=== PATIENT | male | born 1990 | race Caucasian/White ===

== ENCOUNTER 2022-02-25 12:00 | Outpatient (CLI) | payer BC, SELFPAY | END 2022-02-25 12:01 | disposition home or self-care (01) | LOC: SLEEP 02-26 12:37 | PROVIDERS: Visit Provider Family Medicine | DX: R06.83 Snoring (principal) | CPT/HCPCS: G0399 ==

== ENCOUNTER 2022-11-02 16:22 | Outpatient (CLI) | payer MEDICAID, SELFPAY ==
[2022-11-02 16:45] LABS: Viscosity Semen Normal
[2022-11-02 17:21] LABS: Epithelial Count Semen 0-4 /hpf; Red Blood Count Semen 0-4 /hpf
[2022-11-02 17:23] LABS: Sperm Immotility 50 % (50-60)
[2022-11-02 17:24] LABS: Sperm Non-Progressive Motility 20 % (5-10); Sperm Progressive Motility 30 % (31-34)
[2022-11-02 18:04] LABS: Sperm Vitality-% Live Sperm 48 %
[2022-11-02 18:10] LABS: PH Semen 7.5 (7.0-8.0)
== END 2022-11-02 16:23 | disposition home or self-care (01) ==
LOC: LAB 16:23
PROVIDERS: Visit Provider Obstetrics & Gynecology
DX: N46.9 Male infertility, unspecified (principal)
CPT/HCPCS: 80503; 89320

== ENCOUNTER 2022-12-17 19:43 | Inpatient (IN) | payer MEDICAID, SELFPAY ==
--- NOTE | 2022-12-17 19:50 | W.ED.PSYCHS ---
HPI - Psych General: Chief Complaint: Psychiatric Symptoms Stated Complaint: Anxiety/depression Time Seen by Provider: 12/17/22 19:49 History of Present Illness: Mr Black is a 32-year-old gentleman with history of anxiety presenting to the emergency department for mental health exam. He reports increased stress for some period of time and has began to feel like he loses control of his emotions. He describes acting in ways that he would not normally do. He was recently fired from his job. He reports crying in the car for about 30 minutes yesterday for reasons that he cannot is unsure of. He denies specific suicidal or homicidal thoughts. He does endorse possible hallucinations in the past though this is somewhat vague and may be more secondary to sleep deprivation. Intensity symptoms is severe. He does endorse THC use. No other specific changes in health, exacerbating, or alleviating factors identified. Onset (ago): day(s) Duration: getting worse Relieving factors: none Exacerbating factors: none Context: significant life stressor Associated psychiatric symptoms: depression Review of Systems General: Reports: 10 or more systems reviewed and unremarkable except in HPI and below PFSH ED PFSH: Medical History No significant past medical history Surgical History No significant past surgical history Physical Exam Const: COMMON NORMALS: alert GENERAL APPEARANCE: cooperative and well developed HENMT: COMMON NORMALS: normocephalic and atraumatic HEAD & SCALP: normocephalic and atraumatic Eye: COMMON NORMALS: conjunctivae normal CONJUNCTIVA: Yes conjunctivae normal SCLERA: sclerae normal Neck/C-Spine: COMMON NORMALS: supple GENERAL: Yes trachea midline Resp: COMMON NORMALS: normal respiratory effort EFFORT & INSPECTION: Yes able to speak in complete sentences Cardio: COMMON NORMALS: regular rate and regular rhythm RATE: regular rate RHYTHM: regular rhythm GI: COMMON NORMALS: Soft to palpation PALPATION: Yes Soft to palpation and No Tenderness to palpation present (GI) PERCUSSION: normal to percussion Extremity: GENERAL: Yes normal exam except as noted and No edema Neuro: COMMON NORMALS: moves all extremities SENSORIUM/ORIENTATION: Yes alert and No Orientation impaired Psych: ATTITUDE: Yes paranoid and Yes bizarre MOOD & AFFECT: Yes elevated mood THOUGHT PROCESS: disorganized Course Vital Signs: Vital signs: Vital Signs Temperature 97.6 F 12/21/22 16:09 Pulse Rate 70 12/21/22 16:09 Respiratory Rate 20 H 12/21/22 16:09 Blood Pressure 158/93 12/21/22 16:09 Pulse Oximetry 95 12/21/22 16:09 Oxygen Delivery Me thod 12/21/22 14:00 MDM - Psych Medical Decision Making 32-year-old male presenting with episodes of abnormal psychiatric symptoms that have worsened. Patient is cooperative but quite odd on neurologic exam. Details of history are somewhat challenging to obtain. No significant hematologic or metabolic abnormalities to explain symptoms. Toxic ingestions negative. THC positive on her drug screen. Based on ED evaluation at this point there is no obvious condition that would preclude the patient from inpatient management psychiatric concerns/symptoms. Most likely etiology of patient symptoms is unspecified psychiatric The results of ED evaluation were discussed with the patient including plan for admission due to requirement for level of care not available if discharged to prevent significant worsening/deterioration. Patient agreeable with plan. Discussed with psychiatry service who was agreeable to admit patient. Medical Records I reviewed the patient's medical records. Lab Data I reviewed the patient's lab results. 12/17/22 20:22 12/17/22 20: Laboratory Results WBC 8.8 10^3/uL (4.0-10.0) 12/17/22 20: RBC 4.72 10^6/uL (4.1-5.3) 12/17/22 20: Hgb 13.6 g/dL (11.7-16.6) 12/17/22: Hct 41.0 % (42.0-52.0) L 12/17/22: MCV 86.9 fl (80-94) 12/17/22 20: MCH 28.8 pg (28.0-34.0) 12/17/22: MCHC 33.2 g/dL (30.0-36.0) 12/17/22 20: RDW 12.4 % (12.1-15.1) 12/17/22 20: Plt Count 326 10^3/cmm (130-400) 12/17/22 20: MPV 10.3 fL (7.4-10.4) 12/17/22 20: Neut % (Auto) 60.9 % 12/17/22 20: Lymph % (Auto) 23.3 % 12/17/22 20: [place] % (Auto) 14.2 % 12/17/22 20: Eos % (Auto) 0.7 % 12/17/22 20: Baso % (Auto) 0.7 % 12/17/22: Neut # (Auto) 5.38 10^3/uL (1.8-7.7) 12/17/22 20: Lymph # (Auto) 2.1 10^3/uL (0.8-4.8) 12/17/22: [place] # (Auto) 1.3 10^3/uL (0.2-0.9) H 12/17/22 20: Eos # (Auto) 0.1 10^3/uL (0.0-0.8) 12/17/22: Baso # (Auto) 0.1 10^3/uL (0.0-0.1) 12/17/22: Nucleated RBC % (auto) 0 % 12/17/22: Nucleated RBCs # 0.0 /100WBC 12/17/22 20: Sodium 138 mmol/L (136-145) 12/17/22 20: Potassium 4.0 mmol/L (3.5-5.1) 12/17/22 20: Chloride 101 mmol/L (98-107) 12/17/22: Carbon Dioxide 22 mmol/L (22-29) 12/17/22 20: Anion Gap 19.0 (5-19) 12/17/22 20: BUN 9 mg/dL (6-20) 12/17/22: Creatinine 0.9 mg/dL (0.7-1.2) 12/17/22 20: GFR Calculation 97.8 mL/min (90-130) 12/17/22 20: Glucose 122 mg/dL (65-115) H 12/17/22 20: Calculated Osmolality 286 mOsm/kg (285-295) 12/17/22: Calcium 9.8 mg/dL (8.5-10.5) 02/16/23 20:22 Total Bilirubin 0.4 mg/dL (0.15-1.2) 12/17/22 20:22 AST 46 U/L (0-40) H 12/17/22 20:22 ALT 56 U/L (0-41) H 12/17/22 20:22 Alkaline Phosphatase 80 U/L (40-130) 12/17/22 20:22 Total Protein 7.1 g/dL (6.6-8.7) 12/17/22 20:22 Albumin 4.8 g/dL (3.5-5.2) 12/17/22 20:22 Globulin 2.3 g/dL (1.3-4.6) 12/17/22 20:22 Salicylates 1.2 mg/dL (3-10) L 12/17/22 20:22 Urine Opiates Screen Negative ng/mL (Negative) 12/17/22 20:22 Acetaminophen < 5.0 ug/mL (10-30) L 12/17/22 20:22 Ur Barbiturates Screen Negative ng/mL (Negative) 12/17/22 20:22 Ur Phencyclidine Scrn Negative ng/mL (Negative) 12/17/22 20:22 Ur Amphetamines Screen Negative ng/mL (Negative) 12/17/22 20:22 U Benzodiazepines Scrn Negative ng/mL (Negative) 12/17/22 20:22 Urine Cocaine Screen Negative ng/mL (Negative) 12/17/22 20:22 U Marijuana (THC) Screen Positive ng/mL (Negative) H 12/17/22 20:22 Ethyl Alcohol < 10 mg/dL (0-10) 12/17/22 20:22 Discharge Plan Discharge Patient Disposition: Admitted As Inpatient Admit Provider: Randolph Irby Clinical Impression: Depression, Acute anxiety, Labile mood Condition: Stable Discharge Diet: Usual diet Discharge Activity: Resume usual activity Coding Level of Care Code 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
[2022-12-17 19:54] VITALS: BP 156/99; PULSE 94; RESP 18; TEMP 36.6; O2SAT 98; BMI 34.9
[2022-12-17 20:33] LABS: Basophils # 0.1 10^3/uL (0.0-0.1); Basophils % 0.7 %; Eosinophils # 0.1 10^3/uL (0.0-0.8); Eosinophils % 0.7 %; Hemoglobin 13.6 g/dL (11.7-16.6); Lymphocytes # 2.1 10^3/uL (0.8-4.8); Lymphocytes % 23.3 %; Mean Corpuscular HGB Conc 33.2 g/dL (30.0-36.0); Mean Corpuscular Hemoglobin 28.8 pg (28.0-34.0); Mean Corpuscular Volume 86.9 fl (80-94); Mean Platelet Volume 10.3 fL (7.4-10.4); Monocytes # 1.3 10^3/uL (0.2-0.9); Monocytes % 14.2 %; Neutrophils # 5.38 10^3/uL (1.8-7.7); Neutrophils % 60.9 %; Nucleated Red Blood Cells % 0 %; Platelet Count 326 10^3/cmm (130-400); Red Blood Count 4.72 10^6/uL (4.1-5.3); Red Cell Distribution Width 12.4 % (12.1-15.1); White Blood Count 8.8 10^3/uL (4.0-10.0)
[2022-12-17 20:50] LABS: Amphetamines Screen Urine Negative (Negative); Barbiturates Screen Urine Negative (Negative); Benzodiazepines Screen Urine Negative (Negative); Cocaine Screen Urine Negative (Negative); Opiate Screen Urine Negative (Negative); PCP Screen Urine Negative (Negative); THC Screen Urine Positive (Negative)
[2022-12-17 21:05] LABS: Alanine Aminotransferase 56 U/L (0-41); Albumin Level 4.8 g/dL (3.5-5.2); Alkaline Phosphatase 80 U/L (40-130); Blood Urea Nitrogen 9 mg/dL (6-20); Calcium 9.8 mg/dL (8.5-10.5); Carbon Dioxide 22 mmol/L (22-29); Chloride 101 mmol/L (98-107); Creatinine Clr Calc Pharmacy 137.9507; Globulin 2.3 g/dL (1.3-4.6); Glomerular Filtration Rate 97.8 mL/min (90-130); Glucose 122 mg/dL (65-115); Osmolality Calculated 286 mOsm/kg (285-295); Salicylate 1.2 mg/dL (3-10); Sodium 138 mmol/L (136-145); Total Bilirubin 0.4 mg/dL (0.15-1.2); Total Protein 7.1 g/dL (6.6-8.7)
[2022-12-17 21:14] LABS: Acetaminophen < 5.0 ug/mL (10-30); Alcohol Level < 10 mg/dL (0-10)
[2022-12-17 21:17] LABS: Aspartate Amino Transferase 46 U/L (0-40)
[2022-12-17 22:17] VITALS: BP 161/110; PULSE 79; RESP 17; TEMP 36.9; O2SAT 99
[2022-12-17] MEDS: trazodone 50 mg Tablet PO (23:45)
[2022-12-18] MEDS: OLANZapine 5 mg ODT PO (00:25)
[2022-12-18] MEDS: venlafaxine ER (24HR) 150 mg Capsule PO (10:03)
[2022-12-18] MEDS: cetirizine 10 mg Tablet PO (10:03)
[2022-12-18] MEDS: acetaminophen 325 mg Tablet 650 MG PO (10:15)
[2022-12-18 14:00] VITALS: BP 130/87; PULSE 64; RESP 18; TEMP 36.8; O2SAT 95
[2022-12-18 15:40] VITALS: BP 130/87; PULSE 64; RESP 18; TEMP 36.8; O2SAT 95
--- NOTE | 2022-12-18 16:51 | P.NPUHP_ITS ---
Providers/Chief Complaint Admitting Physician: Randolph Irby MD Chief Complaint: anxiety. HPI NPU History of Present Illness Benoit Black is a 32 year old male who reports that he had presented himself to the emergency department after he had had a breakdown at work where he had apparently lost control of his emotions at [employer] and had proceeded to punch various items at work leading to the patient being fired from his job. He had reported that he had lost control of his emotions and reports that he needed to be in the hospital for an evaluation. The patient was admitted to the neuropsychiatric unit for further evaluation and treatment as he was admitted voluntarily. He had reported that for the last several days he has had limited amounts of sleep. He had reported that he had been extremely busy and extremely stressed about various problems including his 's medical problems his work related issues and his continued goal oriented activities including apparently taking apart his motor vehicle to fix it. He had provided a history of having increased work related problems for a few months and stated that he had been in need of help for his anxiety. He had reported that he frequently feels like his thoughts are moving rapidly. He was unable to describe having any increase or d ecrease in racing thoughts. He had reported at times having decreased need for sleep and reports that he normally isolates himself and is introverted but he had lost it at work and decided to tell his work everything that was on his mind. He had admitted to using a powerful caffeinated beverage over the last few weeks to stay awake called bryan Grier. 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 Upon viewing of this written information, the patient had written a long difficult note containing some difficult to follow events that appeared to be almost a stream of consciousness writing. He denied any paranoia nor did he report having any ideas of reference but did report that he needed help. He had reported that he had been compliant with taking his Effexor XR 300 mg as prescribed for several months and reported that he had been using routine marijuana to manage his anxiety. He had reported a history of excessive spending recently as he had stated that he is currently in the process of getting a loan to purchase a new home. Psychiatric history: The patient had reported no prior inpatient hospitalization. He had reported that he had been receiving medication through the [facility] under Dr. Santiago in [facility] and had been prescribed his medication there with 1 previous trial of an SSRI for treating anxiety unsuccessfully. Surgeries: None Medical history: Reports of sleep apnea per previous records Allergies no known drug allergies Drug and alcohol history: He has reported routine daily use of marijuana for several years stating that he is on Indica for anxiety. He minimizes any alcohol use currently nor any other illicit drug use. Social history: He was born in [facility] and raised by his biological parents. He had reported having graduated from high school in [place]. He has 1 sister who he has limited contact with. He has reported that he has been for 4 years and has a child who is 5 years old who is in the home. He reported no history of sexual physical or emotional abuse. He had reported that his biological parents had both been diagnosed with bipolar disorder. 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 Family psychiatric history: Bipolar disorder in mother and father Meds NPU Home Medications Medication Instructions Recorded Confirmed Last Taken Type cetirizine 10 mg tablet (Zyrtec) 10 mg PO DAILY 12/17/22 12/17/22 Unknown Histor y venlafaxine 150 mg tablet,extended 150 mg PO DAILY 12/17/22 12/17/22 12/16/22 09:00 History release 24 hr Allergies Allergy/AdvReac Type Severity Reaction Status Date / Time No Known Allergies Allergy Unverified 10/30/22 08:50 Mental Status Exam MSE Comments: The patient is a casually dressed white male with adequate hygiene and normal gait with no evidence of any abnormal involuntary motor movements tics or tremors appreciated. He was alert and oriented to person place and time. His speech was somewhat decreased in volume but pressured and constant. He was difficult to interrupt and overly elaborative on interview. His mood was described as all right. His affect appeared somewhat euthymic and somewhat odd. There was some evidence of grandiosity and a good deal of excessive confidence noted during the examination as he had repeatedly stated that he was in someway superior to others. His thought process at times appeared circumstantial and difficult to follow as he required redirection repeatedly throughout the interview. His thought process also appeared illogical. He minimized any homicidal or suicidal ideation although he had acknowledged making a physical threat to someone at work. His insight appeared impaired. His impulse control appeared limited. His judgment was poor. Vitals/I&O/Wt Last Vital Signs Temp 98.2 F 12/18/22 15:40 Pulse 64 12/18/22 15:40 Resp 18 12/18/22 15:40 BP 130/87 12/18/22 15:40 Pulse Ox 95 12/18/22 15:40 O2 Del Method 12/17/22 22:17 Weight last 48 hrs Weight 104.326 kg Data NPU 12/17/22 20:22 12/17/22 20:22 A&P Assessment and plan (1) Psychosis: (2) Bipolar disorder, unspecified: (3) Acute anxiety: Plan Steven is a 32-year-old white male who appears to be having some possible episode of christiano with some evidence of disorganized thinking and psychosis. He has genetic loading for bipolar disorder and was agreeable to treatment for this problem. It is possible that the patient has also had SNRI induced christiano from Effexor XR. I discussed with the patient the plan to taper Effexor and initiate a medication to target bipolar disorder. After discussing some medications the patient was agreeable to a trial of Abilify. #1 therapeutic observation 15-minute checks on the unit. #2. Engage patient in individual milieu and group therapy #3. Taper Effexor extended release over the course of 3 to 4 days and began Abilify #4 we will attempt to gather collateral information from family. Attestations NPU Medical Necessity Statement*: The patient will continue to require acute psychiatric hospitalization that is expected affected to cross 2 midnights with likely length of stay of 5 to 7 days. Coding Level of Care Code Acute Code for [facility] Fwd Diagnoses Psychosis F29 Bipolar disorder, unspecified F31.9 Acute anxiety F41.9
[2022-12-18] MEDS: venlafaxine ER (24HR) 75 mg Capsule PO (18:54)
[2022-12-18] MEDS: ARIPiprazole 10 mg Tablet PO (18:54)
[2022-12-18 21:25] VITALS: BP 113/73; PULSE 61; RESP 16; TEMP 36.5; O2SAT 100
[2022-12-19] MEDS: trazodone 50 mg Tablet PO (00:16)
[2022-12-19] MEDS: hyDROXYzine 25 mg Capsule 50 MG PO ×3 (00:16→15:28)
[2022-12-19 06:00] VITALS: BP 155/84; PULSE 54; RESP 16; TEMP 36.6; O2SAT 99
[2022-12-19] MEDS: ARIPiprazole 10 mg Tablet PO (09:03)
[2022-12-19] MEDS: venlafaxine ER (24HR) 150 mg Capsule PO (09:03)
[2022-12-19] MEDS: cetirizine 10 mg Tablet PO (09:03)
[2022-12-19] MEDS: acetaminophen 325 mg Tablet 650 MG PO ×2 (10:18→15:37)
[2022-12-19] MEDS: OLANZapine 5 mg ODT PO ×2 (10:23→17:36)
--- NOTE | 2022-12-19 10:23 | PC.NURSE ---
PRN Certified Hyperbaric Technologist Patient asked to talk to this RN down in the dayroom to explain why I'm feeling anxious. This RN went to the dayroom and the patient explained that he is worried about his job. 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 Patient then stated he felt like he was having a panic attack. Patient instructed to deep breathe and to try to rest in bed for a bit to calm his mind. Zyprexa administered due to labored breathing.
[2022-12-19] MEDS: haloperidol 5 mg Tablet PO (13:06)
[2022-12-19 14:00] VITALS: BP 163/78; PULSE 71; RESP 20; TEMP 36.3; O2SAT 99
--- NOTE | 2022-12-19 14:01 | W.PM.NPUPNS ---
Subjective NPU Subjective: Patient is a 32-year-old white male with no previous history of inpatient hospitalizations admitted with manic symptoms with psychosis. 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 He reported that he continued to have thoughts that appeared to be interfering with his own and reported that they were distracting to him. He had acknowledged that his behavior leading to him losing his job at the [employer] was unusual for him as he stated that he had tended to be introverted and not likely to confront others. He had endorsed decreased need for sleep with increased goal-directed activities including staying up at nights trying to fix his car outside despite the cold weather. He had reported having been diagnosed with depression and suicidal ideation as a teenager but states that he never told anyone. He continued to report having some anxiety. He minimized having thoughts of hurting himself. He had reported having difficulties with organizing his thoughts and stated that he did not feel like his thoughts were very organized over the past week. Mental Status Exam MSE Comments: The patient is a casually dressed white male with adequate hygiene and normal gait with no evidence of any abnormal involuntary motor movements tics or tremors appreciated. His eye contact was fair. He was alert and oriented to person place and time. His speech was somewhat decreased in volume but pressured and difficult to interrupt. He again was overly elaborative on interview. His mood was described as okay. His affect appeared somewhat odd and somewhat flat. There was less evidence of grandiosity and a good deal of excessive confidence noted during the examination as he attempted to channel his superiority in discussing his accomplishments and skills. His thought process at times appeared circumstantial and difficult to follow as he required redirection repeatedly throughout the interview. His thought process also appeared illogical. He minimized any homicidal or suicidal ideation although he had acknowledged making a physical threat to someone at work. His insight appeared impaired. His impulse control appeared limited. His judgment was poor. There is no evidence of any stereotypies. Vitals/I&O/Wt Last Vital Signs Temp 97.8 F 12/19/22 06:00 Pulse 54 L 12/19/22 06:00 Resp 16 12/19/22 06:00 BP 155/84 12/19/22 06:00 Pulse Ox 99 12/19/22 06:00 O2 Del Method 12/19/22 06:00 Weight last 48 hrs Weight 104.326 kg Data NPU 12/17/22 20:22 12/17/22 20:22 A&P Assessment and plan (1) Psychosis: (2) Bipolar disorder, unspecified: (3) Acute anxiety: Plan Steven is a 32-year-old white male who appears to be having some possible episode of christiano with some evidence of disorganized thinking and psychosis. He has genetic loading for bipolar disorder and was agreeable to treatment for this problem. It is possible that the patient has also had SNRI induced christiano from Effexor XR. I discussed with the patient the plan to taper Effexor and initiate a medication to target bipolar disorder. After discussing some medications the patient was agreeable to a trial of Abilify. #1 therapeutic observation 15-minute checks on the unit. #2. Engage patient in individual milieu and group therapy #3. Decreasing Effexor XR to 150mg daily with continued reduction. Abilify 10mg daily to target christiano and psychosis. #4 we will attempt to gather collateral information from family (?) Attestations NPU Medical Necessity Statement*: The patient will continue to require acute psychiatric hospitalization that is expected affected to cross 2 midnights with likely length of stay of 5 to 7 days. Coding Level of Care Code Acute Code for [facility] Fwd Diagnoses Psychosis F29 Bipolar disorder, unspecified F31.9 Acute anxiety F41.9
--- NOTE | 2022-12-19 14:23 | PC.NURSE ---
PRN Anesthesiology Physician At approximately 1300 patient approached this RN and stated he still felt like he was panicking. This RN asked what was making him feel anxious today. He stated, just stuff I can't take care of in here. My job, the car. Just sucks. Patient advised to try coping mechanisms such as writing out his thoughts on paper or trying a puzzle, which had worked previously today. However, patient said he knew nothing was going to help this time. Haldol 5mg PO administered.
--- NOTE | 2022-12-19 15:29 | PC.NURSE ---
PRN Lead Project Manager Patient presented to this nurse shaking his head. He said he was having trouble sitting long enough to visit with his today. They only visited for about 10 minutes. He said he still felt anxious about everything he needed to do after he leaves the facility. This RN encouraged him to think in the now and not the future this time. I also encouraged him to try to watch tv or write about how he feels but he opted not to try these things and said they wouldn't take his mind off of it.
--- NOTE | 2022-12-19 17:37 | PC.NURSE ---
PRN Physician Industrial Patient stated to this RN that he was having a panic attack and his palms were sweaty. Patient again stated he was anxious about all he needed to accomplish after he leaves the facility. This RN offered suggested several coping mechanisms before trying medications such as reading, writing out what was making him feel anxious, deep breaths, playing cards, or doing an activity with his hands. Patient agreed to work with [employer] for awhile to try to relieve the anxiety. He had success for approximately 20 minutes and then brought the blocks back up to the counter and stated, my hands are still sweaty and this stopped working. This RN thanked the patient for trying a new coping mechanism and administered zyprexa 10mg odt for continued voiced anxious thoughts and visible sweating.
[2022-12-19 21:01] VITALS: BP 106/82; PULSE 97; RESP 18; TEMP 36.4; O2SAT 97
[2022-12-20] MEDS: hyDROXYzine 25 mg Capsule 50 MG PO ×3 (04:36→21:07)
[2022-12-20 06:00] VITALS: BP 133/76; PULSE 63; RESP 17; TEMP 36.5; O2SAT 99
[2022-12-20] MEDS: venlafaxine ER (24HR) 150 mg Capsule PO (09:39)
[2022-12-20] MEDS: cetirizine 10 mg Tablet PO (09:39)
[2022-12-20] MEDS: OLANZapine 5 mg ODT PO ×3 (09:39→22:44)
[2022-12-20] MEDS: ARIPiprazole 10 mg Tablet PO (09:39)
--- NOTE | 2022-12-20 09:54 | PC.NURSE ---
PRN Fisher Reef Net States he woke up very anxious and depressed because he is not used to this environment. Hands shaking slightly on assessment. He says he is missing his , 5 year old boy, and his cats. Patient also states he's used to his own bed and just can't get comfortable here. He asked if his heart was beating fast upon assessment because his chest feels heavy. However, upon auscultation HR is 3+ and normal. Patient administered zyprexa 10mg odt at 0938.
[2022-12-20 14:00] VITALS: BP 135/76; PULSE 66; RESP 20; TEMP 36.6; O2SAT 98
--- NOTE | 2022-12-20 15:01 | W.PM.NPUPNS ---
Subjective NPU Subjective: Patient is a 32-year-old white male with no previous history of inpatient hospitalizations admitted with manic symptoms with psychosis. The patient had reported continued worries and stated that he needed to go home soon so he could complete his tasks. He had been sleeping better and reported that he felt that his thoughts were slowing down. He was redirectable on the milieu but continued to isolate himself and stated that he was feeling bored. The patient had spend excessive amount of the day in the room sleeping and stated that he did this out of boredom as there was nothing else to do. He did not endorse any thoughts of hurting himself or others at this time. He had reported that he continued to have support from his . He had reported some withdrawal symptoms associated with his reduction of Effexor and requested if he could go back to 225 mg of Effexor today. Mental Status Exam MSE Comments: The patient is a casually dressed white male with adequate hygiene and normal gait with no evidence of any abnormal involuntary motor movements tics or tremors appreciated. His eye contact was fair. He was alert and oriented to person place and time. His speech was decreased in rate and productive but easier to interrupt with reduced pressure and speech noted. He remained overly elaborative on interview. His mood was described as okay. His affect appeared somewhat odd and subdued. There was less evidence of grandiosity appreciated during the examination. His thought process at times appeared circumstantial, with presence of overvalued ideas. He minimized any homicidal or suicidal ideation although he had acknowledged making a physical threat to harm someone at work. His insight appeared impaired. His impulse control appeared limited. His judgment was poor. There is no evidence of any stereotypies. Vitals/I&O/Wt Last Vital Signs Temp 97.9 F 12/20/22 14:00 Pulse 66 12/20/22 14:00 Resp 20 H 12/20/22 14:00 BP 135/76 12/20/22 14:00 Pulse Ox 98 12/20/22 14:00 O2 Del Method 12/20/22 06:00 Weight last 48 hrs Weight 100.868 kg Data NPU 12/17/22 20:22 12/17/22 20:22 A&P Assessment and plan (1) Psychosis: (2) Bipolar disorder, unspecified: (3) Acute anxiety: Carlos Harris is a 32-year-old white male who appears to be having some possible episode of christiano with some evidence of disorganized thinking and psychosis. He has genetic loading for bipolar disorder and was agreeable to treatment for this problem. It is possible that the patient has also had SNRI induced christiano from Effexor XR. I discussed with the patient the plan to taper Effexor and initiate a medication to target bipolar disorder. After discussing some medications the patient was agreeable to a trial of Abilify. #1 therapeutic observation 15-minute checks on the unit. #2. Engage patient in individual milieu and group therapy #3. Reduce taper of Effexor and maintain Effexor xr at 225mg today with continued slower reduction planned. Abilify increase to 15mg daily to target christiano and psychosis. #4 we will attempt to gather collateral information from family (?) Attestations NPU Medical Necessity Statement*: The patient will continue to require acute psychiatric hospitalization that is expected affected to cross 2 midnights with likely length of stay of 5 to 7 days. Coding Level of Care Code Acute Code for [facility] Fwd Diagnoses Psychosis F29 Bipolar disorder, unspecified F31.9 Acute anxiety F41.9
[2022-12-20] MEDS: venlafaxine ER (24HR) 75 mg Capsule PO (16:10)
[2022-12-20 21:04] VITALS: BP 117/87; PULSE 84; RESP 16; TEMP 36.5; O2SAT 97
[2022-12-20] MEDS: trazodone 50 mg Tablet PO (22:05)
[2022-12-21] MEDS: ibuprofen 600 mg Tablet PO ×2 (03:25→09:43)
[2022-12-21] MEDS: hyDROXYzine 25 mg Capsule 50 MG PO ×2 (03:42→08:33)
--- NOTE | 2022-12-21 03:45 | PC.NURSE ---
pt states i cannot sleep and is requesting a prn for anxiety. vistaril given as ordered.
[2022-12-21] MEDS: OLANZapine 5 mg ODT PO ×2 (05:57→12:39)
--- NOTE | 2022-12-21 05:58 | PC.NURSE ---
pt stated I am on edge because this place is making me claustrophobic . pt was given zyprexa as ordered.
[2022-12-21 06:00] VITALS: BP 157/95; PULSE 99; TEMP 36.5; O2SAT 97
[2022-12-21] MEDS: venlafaxine ER (24HR) 75 mg Capsule 225 MG PO (08:08)
[2022-12-21] MEDS: cetirizine 10 mg Tablet PO (08:08)
[2022-12-21] MEDS: ARIPiprazole 10 mg Tablet 15 MG PO (08:08)
[2022-12-21] MEDS: acetaminophen 325 mg Tablet 650 MG PO (08:33)
[2022-12-21 14:00] VITALS: BP 158/93; PULSE 70; RESP 20; TEMP 36.4; O2SAT 95
--- NOTE | 2022-12-21 16:05 | P.NPUDS_ITS ---
Diagnoses at Discharge Discharge Diagnosis (1) Psychosis: Status: Acute (2) Bipolar disorder, unspecified: Status: Acute (3) Acute anxiety: Status: Acute Reason for Visit Reason for Visit: anxiety. Brief History: History of Present Illness Benoit Black is a 32 year old male who reports that he had presented himself to the emergency department after he had had a breakdown at work where he had apparently lost control of his emotions at [employer] and had proceeded to punch various items at work leading to the patient being fired from his job.? He had reported that he had lost control of his emotions and reports that he needed to be in the hospital for an evaluation.? The patient was admitted to the neuropsychiatric unit for further evaluation and treatment as he was admitted voluntarily.? He had reported that for the last several days he has had limited amounts of sleep.? He had reported that he had been extremely busy and extremely stressed about? various problems including his 's medical problems his work related issues and his continued goal oriented activities including apparently taking apart his motor vehicle to fix it.? He had provided a history of having increased work related problems for a few months and stated that he had been in need of help for his anxiety.? He had reported that he frequently feels like his thoughts are moving rapidly.? He was unable to describe having any increase or decrease in racing thoughts.? He had reported at times having decreased need for sleep and reports that he normally isolates himself and is introverted but he had lost it at work and decided to tell his work everything that was on his mind.? He had admitted to using a powerful caffeinated beverage over the last few? weeks to stay awake called bryan Grier.? He had provided to the press writer of this note a 4 page report that he had written attempting to explain for different vi ewpoints regarding the events that had taken place leading to his hospitalization from the perspective of himself his his work-related supervisor lead burning and a friend.? Upon viewing of this written information, the patient had written a long difficult note containing some difficult to follow events that appeared to be almost a stream of consciousness writing.? He denied any paranoia nor did he report having any ideas of reference but did report that he needed help.? He had reported that he had been compliant with taking his Effexor XR 300 mg as prescribed for several months and reported that he had been using routine marijuana to manage his anxiety.? He had reported a history of excessive spending recently as he had stated that he is currently in the process of getting a loan to purchase a new home. Psychiatric history: The patient had reported no prior inpatient hospitalization.? He had reported that he had been receiving medication through the [facility] under Dr. Santiago in [facility] and had been prescribed his medication there with 1 previous trial of an SSRI for treating anxiety unsuccessfully. Surgeries: None Medical history: Reports of sleep apnea per previous records Allergies no known drug allergies Drug and alcohol history: He has reported routine daily use of marijuana for several years stating that he is on Indica for anxiety.? He minimizes any alcohol use currently nor any other illicit drug use. Social history: He was born in [facility] and raised by his biological parents.? He had reported having graduated from high school in [place].? He has 1 sister who he has limited contact with.? He has reported that he has been for 4 years and has a child who is 5 years old who is in the home.? He reported no history of sexual physical or emotional abuse.? He had reported that his biological parents had both been diagnosed with bipolar disorder.? 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 Family psychiatric history: Bipolar disorder in mother and father Hospital Course Hospital Course Discharge Summary: During the hospitalization, patient had routine laboratory studies which were within normal limits except for few outliers. Additionally there was a general medical evaluation which was also within normal limits and revealed no new acute processes. At the time of discharge, lethality was denied and psychosis was resolving. Mood and anxiety were well managed. Patient endorsed a plan to avoid all drugs of abuse and follow-up with the aftercare recommendations of the treatment team. Patient was evaluated and deemed to be absent credible lethality, and had achieved the maximum benefit from an inpatient hospitalization, so was discharged. The patient had appeared psychotic and manic on the unit and Abilify was added and Effexor XR was reduced to 225mg on discharge with a plan for the patient to reduce Effexor XR slowly with concern that it was causing increased mood cycling. The patient was agreeable to this plan to continue on an outpatient basis. Mental Status Exam MSE Comments: The patient is a casually dressed white male with adequate hygiene and normal gait with no evidence of any abnormal involuntary motor movements tics or tremors appreciated. His eye contact was fair. He was alert and oriented to person place and time. His speech was normal in regards to ra te, prosody. His mood was described as better. His affect remains somewhat restricted. There was no clear evidence of delusional thinking. He did not appear to be responding to internal stimuli. His thought process at the time of discharge was more focused and less circumstantial. He minimized any homicidal or suicidal ideation. His insight appeared improved as well.. His impulse control appeared better. His judgment was fair. There is no evidence of any stereotypies. Discharge Data Studies Completed and Pending: Laboratory Results WBC 8.8 10^3/uL (4.0- 10.0) 12/17/22: RBC 4.72 10^6/uL (4.1 -5.3) 12/17/22: Hgb 13.6 g/dL (11.7-1 6.6) 12/17/22: Hct 41.0 % (42.0-52.0 ) L 12/17/22: MCV 86.9 fl (80-94) 12/17/22: MCH 28.8 pg (28.0-34. 0) 12/17/22: MCHC 33.2 g/dL (30.0-3 6.0) 12/17/22 20: RDW 12.4 % (12.1-15.1 ) 12/17/22: Plt Count 326 10^3/cmm (130 -400) 12/17/22: MPV 10.3 fL (7.4-10.4 ) 12/17/22 20: Neut % (Auto) 60.9 % 12/17/22: Lymph % (Auto) 23.3 % 12/17/22: Wash[place] % (Auto) 14.2 % 12/17/22: Eos % (Auto) 0.7 % 12/17/22 20: Baso % (Auto) 0.7 % 12/17/22: Neut # (Auto) 5.38 10^3/uL (1.8 -7.7) 12/17/22: Lymph # (Auto) 2.1 10^3/uL (0.8- 4.8) 12/17/22 20:22 Washburn # (Auto) 1.3 10^3/uL (0.2- 0.9) H 12/17/22 20: Eos # (Auto) 0.1 10^3/uL (0.0- 0.8) 12/17/22 20:22 Baso # (Auto) 0.1 10^3/uL (0.0- 0.1) 12/17/22: Nucleated RBC % (a uto) 0 % 12/17/22: Nucleated RBCs # 0.0 /100WBC 12/17/22 20:22 Sodium 138 mmol/L (136-1 45) 12/17/22: Potassium 4.0 mmol/L (3.5-5 .1) 12/17/22: Chloride 101 mmol/L (98-10 7) 12/17/22: Carbon Dioxide 22 mmol/L (22-29) 12/17/22: Anion Gap 19.0 (5-19) 12/17/22 20: BUN 9 mg/dL (6-20) 12/17/22 20: Creatinine 0.9 mg/dL (0.7-1. 2) 12/17/22 20: GFR Calculation 97.8 mL/min (90-1 30) 12/17/22 20: Glucose 122 mg/dL (65-115 ) H 12/17/22 20:22 Calculated Osmolal ity 286 mOsm/kg (285- 295) 12/17/22: Calcium 9.8 mg/dL (8.5-10 .5) 12/17/22 20: Total Bilirubin 0.4 mg/dL (0.15-1 .2) 12/17/22 20: AST 46 U/L (0-40) H 12/17/22 20: ALT 56 U/L (0-41) H 12/17/22 20:22 Alkaline Phosphata se 80 U/L (40-130) 12/17/22 20:22 Total Protein 7.1 g/dL (6.6-8.7 ) 12/17/22 20: Albumin 4.8 g/dL (3.5-5.2 ) 12/17/22 20: Globulin 2.3 g/dL (1.3-4.6 ) 12/17/22 20:22 Salicylates 1.2 mg/dL (3-10) L 12/17/22 20:22 Urine Opiates Scre en Negative ng/mL (N egative) 12/17/22 20:22 Acetaminophen < 5.0 ug/mL (10-3 0) L 12/17/22 20:22 Ur Barbiturates Sc reen Negative ng/mL (N egative) 12/17/22 20:22 Ur Phencyclidine S crn Negative ng/mL (N egative) 12/17/22 20:22 Ur Amphetamines Sc reen Negative ng/mL (N egative) 12/17/22 20:22 U Benzodiazepines Scrn Negative ng/mL (N egative) 12/17/22 20:22 Urine Cocaine Scre en Negative ng/mL (N egative) 12/17/22 20:22 U Marijuana (THC) Screen Positive ng/mL (N egative) H 12/17/22 20:22 Ethyl Alcohol < 10 mg/dL (0-10) 12/17/22 20:22 Vitals: Last Vital Signs Temp 97.6 F 12/21/22 14:00 Pulse 70 12/21/22 14:00 Resp 20 H 12/21/22 14:00 BP 158/93 12/21/22 14:00 Pulse Ox 95 12/21/22 14:00 O2 Del Method 12/21/22 14:00 Discharge Plan Discharge Patient Disposition: Home Condition: Stable Prescriptions: New venlafaxine 75 mg Capsule,Extended Release 24hr 225 mg PO DAILY 30 Days Qty: 45 1RF Abilify 15 mg tablet 15 mg PO DAILY 30 Days Qty: 30 1RF Continued Zyrtec 10 mg tablet 10 mg PO DAILY Discontinued venlafaxine 150 mg tablet extended release 24hr 150 mg PO DAILY Discharge Orders: Discharge Order (Routine); Ordered 12/21/22 Ordered By: Randolph Irby Referrals: [facility] [Other] - 12/29/22 11:30 am (Appointment with Dr. Oli Santiago for follow up.) [facility] [Outside] - 12/28/22 2:30 pm (Initial appointment scheduled for 12/28/22 check in at 1430) Discharge Diet: Usual diet Discharge Activity: Resume usual activity Patient Instructions: Bipolar Disorder (DC), Depression (DC), Anxiety (DC), Opioid Safety Discharge Attestations NPU Time Spent in Discharge Care*: less than 30 min Specific Discharge Activities: Specific discharge activities: educating patient, discussing with case therapist/social workers/dc planners, documenting/other paperwork and evaluating patient/reviewing data Coding Level of Care Code Acute Chg FW DC note Diagnoses Psychosis F29 Bipolar disorder, unspecified F31.9 Acute anxiety F41.9
[2022-12-21 16:09] VITALS: BP 158/93; PULSE 70; RESP 20; TEMP 36.4; O2SAT 95
== END 2022-12-21 16:17 | disposition home or self-care (01) | DRG 885 ==
LOC: ER 21:32 → NP 21:51
PROVIDERS: Emergency Medicine; Admitting Provider Psychiatry & Neurology Psychiatry; Emergency Provider Emergency Medicine; Visit Provider Psychiatry & Neurology Psychiatry
DX: F31.9 Bipolar disorder, unspecified (principal); F41.9 Anxiety disorder, unspecified; Z81.8 Family history of other mental and behavioral disorders
CPT/HCPCS: 80053; 80306; 80307; 85025; 97150; 97165; 99238; 99285

== ENCOUNTER 2025-07-04 09:36 | Inpatient (IN) | payer BC, MEDICAID, SELFPAY ==
[2025-07-04 09:40] VITALS: BP 147/86; PULSE 80; RESP 16; TEMP 37.3; O2SAT 99; BMI 34.9
--- NOTE | 2025-07-04 09:43 | ED.C_ITS ---
HPI - Psych 2 General: Chief Complaint: Psychiatric Symptoms Stated Complaint: MHE Time Seen by Provider: 07/04/25 09:39 Source: patient Mode of arrival: ambulatory Limitations: no limitations History of Present Illness: 34-year-old male has a history of bipola r disorder he states he feels like his mood has not been regulated lately. He states that he has been having mood swings and been having increased depression. He states that over the last week he has also been having suicidal thoughts and feels like he needs to get help he denies any worse improving factors. Associated symptoms: Reports depression and suicidal ideation Related Data Home Medications ?Medication ?Instructions ?Recorded ?Confirmed cetirizine 10 mg tablet (Zyrtec) 10 mg PO DAILY 12/17/22 Previous Rx's ?Medication ?Instructions ?Recorded aripiprazole 15 mg tablet (Abilify) 15 mg PO DAILY 30 days #30 tabs 12/21/22 venlafaxine 75 mg capsule,extended 225 mg (3 x 75 mg) PO DAILY 30 12/21/22 release 24 hr days #45 caps Allergies Allergy/AdvReac Type Severity Reaction Status Date / Time No Known Allergies Allergy Unverified 10/30/22 08:50 Review of Systems 2 Const: Denies: fever(s), chills, body aches or change in appetite ENMT: Denies: throat pain or dental pain Card: Denies: chest pain Resp: Denies: dyspnea GI: Denies: abdominal pain, nausea, vomiting or diarrhea Musc: Denies: neck pain or back pain Skin/Breast: Denies: rash Neuro: Denies: headache(s) Psych: Reports: depression and suicidal ideation [facility] ED 2 PFSH: Medical History No significant past medical history Surgical History No significant past surgical history Physical Exam 2 Const: COMMON NORMALS: no acute distress, patient oriented x3 and healthy appearing HENMT: COMMON NORMALS: normocephalic and atraumatic HEAD & SCALP: n ormocephalic and atraumatic Eye: COMMON NORMALS: conjunctivae normal CONJUNCTIVA: Yes conjunctivae normal Neck/C-Spine: COMMON NORMALS: full ROM and supple Chest: COMMONS NORMALS: normal inspection of the chest Resp: COMMON NORMALS: normal respiratory effort Cardio: COMMON NORMALS: regular rate RATE: regular rate Extremity: COMMON NORMALS: normal to inspection and full ROM Neuro: COMMON NORMALS: patient oriented x3, moves all extremities and no focal motor deficits Psych: COMMON NORMALS: mental status grossly normal and cooperative MOOD & AFFECT: Yes depressed mood THOUGHT CONTENT: Yes Suicidality present Skin: COMMON NORMALS: no rashes or lesions noted and no wounds GENERAL SKIN EXAM: no rashes or lesions noted Course 2 Vital Signs: Vital signs: Vital Signs Temperature 99.2 F 07/04/25 09:40 Pulse Rate 80 07/04/25 09:40 Respiratory Rate 16 07/04/25 09:40 Blood Pressure 147/86 07/04/25 09:40 Pulse Oximetry 99 07/04/25 09:40 Oxygen Delivery Me thod Room Air 07/04/25 09:40 MDM - Psych Medical Decision Making Patient presents with history of bipolar disorder along with suicidal ideations patient was placed on a 96-hour hold he is medically cleared spoke to psychiatrist and will admit Medical Records I reviewed the patient's medical records. Lab Data I reviewed the patient's lab results. 07/04/25 09:50 07/04/25 09:50 Laboratory Results WBC 10.75 10^3/uL (3.29-11.43) 07/04/25 09:50 RBC 4.86 10^6/uL (3.85-5.65) 07/04/25 09:50 Hgb 14.30 g/dL (11.27-16.99) 07/04/25 09:50 Hct 42.4 % (37-53) 07/04/25 09:50 MCV 87.2 fl (82-101) 07/04/25 09:50 MCH 29.4 pg (27-33) 07/04/25 09:50 MCHC 33.7 g/dL (30-55) 07/04/25 09:50 RDW 12.5 % (12.1-15.1) 07/04/25 09:50 Plt Count 339 10^3/cmm (157-399) 07/04/25 09:50 MPV 9.5 fL (7.4-10.4) 07/04/25 09:50 Neut % (Auto) 75.7 % 07/04/25 09:50 Lymph % (Auto) 16.5 % 07/04/25 09:50 Starke % (Auto) 6.6 % 07/04/25 09:50 Eos % (Auto) 0.2 % 07/04/25 09:50 Baso % (Auto) 0.7 % 07/04/25 09:50 Neut # (Auto) 8.14 10^3/uL (1.8-7.7) H 07/04/25 09:50 Lymph # (Auto) 1.8 10^3/uL (0.8-4.8) 07/04/25 09:50 Starke # (Auto) 0.7 10^3/uL (0.2-0.9) 07/04/25 09:50 Eos # (Auto) 0.0 10^3/uL (0.0-0.8) 07/04/25 09:50 Baso # (Auto) 0.1 10^3/uL (0.0-0.1) 07/04/25 09:50 Nucleated RBC % (auto) 0 % 07/04/25 09:50 Nucleated RBCs # 0.0 /100WBC 07/04/25 09:50 No radiology studies performed this visit Discharge Plan Discharge Patient Disposition: Admitted As Inpatient Clinical Impression: Bipolar disorder, unspecified, Suicidal ideation Condition: Stable Coding Level of Care Code ED Gas Stove Servicer Helper for Donita [place]
--- OUTSIDE RECORDS SUMMARY | 2025-07-04 09:44 | XMS_ITS | Encounter Summary ---
Author Organization [facility] Address [address] [place] [address] Care Team Providers Care Door Captain Name Role Phone Unavailable Primary Care Provider Unavailabl e Encounter Details Date Type Department Care Team (Latest Contact Info) Description 12/02/1998 [facility]patient [facility] [address] [place] [phone] Mani Lizama, DO [address] [place] [phone] Unspecified otitis media (Primary Dx); Acute sinusitis, unspecified Social History Tobacco Use Types Packs/Day Years Used Date Smoking Tobacco: Never Assessed Sex and Gender Information Value Date Recorded Sex Assigned at Not on file Legal 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
--- OUTSIDE RECORDS SUMMARY | 2025-07-04 09:44 | XMS_ITS | Clinical Summary ---
Author Organization [email or web address] Address [address] [facility] Attn: Epic Prelude ADT PHILLIP LAMA [address] Care Team Providers Care Quality Assurance Supervisor Name Role Phone Unavailable Primary Care Provider Unavailabl e Allergies No known active allergies Social History Tobacco Use Types Packs/Day Years Used Date Smoking Tobacco: Every Day Alcohol Use Standard Drinks/Week Comments Yes 0 (1 standard drink = 0.6 oz pur e alcohol) Sex and Gender Information Value Date Recorded Sex Assigned at Not on file Legal Sex Male 2:53 PM BUFFET SERVER Gender Identity Not on file Sexual Orientation Not on file Last Filed Vital Signs Vital Sign Reading Time Taken Comments Blood Pressure 127/7 11/10/2016 10:43 AM BUFFET SERVER Pulse 58 11/10/2016 10:43 AM BUFFET SERVER Temperature 36.7 C (98 F) 11/10/2016 10:43 AM BUFFET SERVER Respiratory Rate - - Oxygen Saturation - - Inhaled Oxygen Concentration - - Weight 92.5 kg (204 lb) 11/10/2016 10:43 AM BUFFET SERVER Height 171.5 cm (5' 7.5 ) 11/10/2016 10:43 AM CS T Body Mass Index 31.48 11/10/2016 10:43 AM BUFFET SERVER Plan of Treatment Health Maintenance Due Date Last Done Comments DTAP/TDAP/TD VACCINES (1 - Tdap) 2009 HEPATITIS B VACCINES (1 of 3 - 19+ 3-dose series) 12/2009 HPV VACCINES (1 - 3-dose SCDM series) 2017 INFLUENZA VACCINE (#1) 2025
--- OUTSIDE RECORDS SUMMARY | 2025-07-04 09:44 | XMS_ITS | Encounter Summary ---
Author Organization [facility] Address [address] [place] [address] Care Team Providers Care Soundscriber Mechanic Name Role Phone Unavailable Primary Care Provider Unavailabl e Encounter Details Date Type Department Care Team (Latest Contact Info) Description 01/13/1999 Outpatient Historical [facility] [address] [place] [phone] Mani Lizama, DO [address] [place] [phone] Unspecified otitis media (Primary Dx) Social History Tobacco Use Types Packs/Day Years Used Date Smoking Tobacco: Never Assessed Sex and Gender Information Value Date Recorded Sex Assigned at Not on file Legal Sex Male 3:45 AM DATA MINER Gender Identity Not on file Sexual Orientation Not on file documented as of this encounter Plan of Treatment Not on file documented as of this encounter Visit Diagnoses Diagnosis Unspecified otitis media- Primary documented in this encounter
--- OUTSIDE RECORDS SUMMARY | 2025-07-04 09:44 | XMS_ITS | Encounter Summary ---
Author Organization [facility] Address [address] [place] [address] Care Team Providers Care Neon Tube Bender Name Role Phone Unavailable Primary Care Provider Unavailabl e Encounter Details Date Type Department Care Team (Latest Contact Info) Description 12/09/[address] 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
--- OUTSIDE RECORDS SUMMARY | 2025-07-04 09:44 | XMS_ITS | Encounter Summary ---
Author Organization [facility] Address [address] [place] [address] Care Team Providers Care Movie Machine Operator Name Role Phone Unavailable Primary Care Provider Unavailabl e Encounter Details Date Type Department Care Team (Latest Contact Info) Description 12/12/1999 Outpatient Historical [facility] [address] [place] [phone] Mani Lizama, DO [address] [place] [phone] Cough (Primary Dx); Acute sinusitis, unspecified Social History Tobacco Use Types Packs/Day Years Used Date Smoking Tobacco: Never Assessed Sex and Gender Information Value Date Recorded Sex Assigned at Not on file Legal Sex Male 3:45 AM TRANSCRIPTIONIST Gender Identity Not on file Sexual Orientation Not on file documented as of this encounter Plan of Treatment Not on file documented as of this encounter Visit Diagnoses Diagnosis Cough- Primary Acute sinusitis, unspecified documented in this encounter
--- OUTSIDE RECORDS SUMMARY | 2025-07-04 09:44 | XMS_ITS | Encounter Summary ---
Author Organization [facility] Address [address] [place] [address] Care Team Providers Care Elementary Teacher Name Role Phone Unavailable Primary Care Provider Unavailabl e Encounter Details Date Type Department Care Team (Latest Contact Info) Description 12/20/1998 Outpatient Historical [facility] [address] [place] [phone] Mani Lizama, DO [address] [place] [phone] Unspecified otitis media (Primary Dx) Social History Tobacco Use Types Packs/Day Years Used Date Smoking Tobacco: Never Assessed Sex and Gender Information Value Date Recorded Sex Assigned at Not on file Legal Sex Male 3:45 AM REVENUE TAX SPECIALIST Gender Identity Not on file Sexual Orientation Not on file documented as of this encounter Plan of Treatment Not on file documented as of this encounter Visit Diagnoses Diagnosis Unspecified otitis media- Primary documented in this encounter
--- OUTSIDE RECORDS SUMMARY | 2025-07-04 09:44 | XMS_ITS | Encounter Summary ---
Author Organization [facility] Address [address] [place] [address] Care Team Providers Care Pneumatic Drum Sander Name Role Phone Unavailable Primary Care Provider Unavailabl e Encounter Details Date Type Department Care Team (Latest Contact Info) Description 01/24/1999 Outpatient Historical [facility]- [place] [address] [place] [address] Bandar Daven[place], NO ADDRESS ON FILE Acute suppurative otitis media with spontaneous rupture of eardrum (Primary Dx); Unspecified otitis media Social History Tobacco Use Types Packs/Day Years Used Date Smoking Tobacco: Never Assessed Sex and Gender Information Value Date Recorded Sex Assigned at Not on file Legal Sex Male 3:45 AM PICTURE FRAMER Gender Identity Not on file Sexual Orientation Not on file documented as of this encounter Plan of Treatment Not on file documented as of this encounter Visit Diagnoses Diagnosis Acute suppurative otitis media with spontaneous rupture of eardrum- Primary Unspecified otitis media documented in this encounter
--- OUTSIDE RECORDS SUMMARY | 2025-07-04 09:44 | XMS_ITS | Encounter Summary ---
Author Organization [facility] Address [address] [place] [address] Care Team Providers Care Church Communications Administrator Name Role Phone Unavailable Primary Care Provider Unavailabl e Encounter Details Date Type Department Care Team (Latest Contact Info) Description 12/30/1998 Outpatient [facility] [address] [place] [phone] Mani Lizama, DO [address] [place] [phone] Unspecified otitis media (Primary Dx) Social History Tobacco Use Types Packs/Day Years Used Date Smoking Tobacco: Never Assessed Sex and Gender Information Value Date Recorded Sex Assigned at Not on file Legal Sex Male 3:45 AM CONSTRUCTION CHECKER Gender Identity Not on file Sexual Orientation Not on file documented as of this encounter Plan of Treatment Not on file documented as of this encounter Visit Diagnoses Diagnosis Unspecified otitis media- Primary documented in this encounter
--- OUTSIDE RECORDS SUMMARY | 2025-07-04 09:44 | XMS_ITS | Encounter Summary ---
Author Organization [facility] Address [address] [place] [address] Care Team Providers Care Corrosion Control Engineer Name Role Phone Unavailable Primary Care Provider Unavailabl e Encounter Details Date Type Department Care Team (Latest Contact Info) Description 03/17/1999 Outpatient Historical [facility] [address] [place] [id number] Mani Lizama, DO [address] [place] [id number] Dermatitis due to plant (Primary Dx) Social History Tobacco Use Types Packs/Day Years Used Date Smoking Tobacco: Never Assessed Sex and Gender Information Value Date Recorded Sex Assigned at Not on file Legal Sex Male 3:45 AM BUGGY RUNNER Gender Identity Not on file Sexual Orientation Not on file documented as of this encounter Plan of Treatment Not on file documented as of this encounter Visit Diagnoses Diagnosis Dermatitis due to plant- Primary Contact dermatitis and other eczema due to plants (except food) documented in this encounter
--- OUTSIDE RECORDS SUMMARY | 2025-07-04 09:44 | XMS_ITS | Clinical Summary ---
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 Gender Identity Not on file Sexual Orientation Not on file Last Filed Vital Signs Vital Sign Reading Time Taken Comments Blood Pressure 127/7 11/10/2016 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 Pulse 58 11/10/2016 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
--- OUTSIDE RECORDS SUMMARY | 2025-07-04 09:44 | XMS_ITS | Encounter Summary ---
Author Organization [facility] Address [address] [place] [address] Care Team Providers Care President And Cmo Name Role Phone Unavailable Primary Care Provider Unavailabl e Encounter Details Date Type Department Care Team (Latest Contact Info) Description 01/27/1999 Outpatient Historical [facility] [address] [place] [id number] Mani Lizama, DO [address] [place] [id number] Unspecified otitis media (Primary Dx) Social History Tobacco Use Types Packs/Day Years Used Date Smoking Tobacco: Never Assessed Sex and Gender Information Value Date Recorded Sex Assigned at Not on file 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
[2025-07-04 09:55] LABS: Hematocrit 42.4 % (37-53); Hemoglobin 14.30 g/dL (11.27-16.99); Mean Corpuscular HGB Conc 33.7 g/dL (30-55); Mean Corpuscular Hemoglobin 29.4 pg (27-33); Mean Corpuscular Volume 87.2 fl (82-101); Nucleated Red Blood Cells % 0 %; Platelet Count 339 10^3/cmm (157-399); Red Blood Count 4.86 10^6/uL (3.85-5.65); White Blood Count 10.75 10^3/uL (3.29-11.43)
--- NOTE | 2025-07-04 10:09 | PC.NURSE ---
Involuntary 96 hour hold rights read and reviewed with patient. When going to read rights on patient, patients and his significant other were displaying extreme PDA. This nurse asked them to stop. This nurse continued to read 96 hour hold rights to patient. [employer] security present during reading of rights. Patients significant other was asked to leave at this time and return during visiting hours. Patient verbalized understandings and copy of rights given to patient.
[2025-07-04 10:28] LABS: Alanine Aminotransferase 32 U/L (0-41); Albumin Level 4.6 g/dL (3.5-5.2); Alkaline Phosphatase 77 U/L (40-130); Anion Gap 18.5 (5-19); Aspartate Amino Transferase 33 U/L (0-40); Blood Urea Nitrogen 12 mg/dL (6-20); Calcium 9.7 mg/dL (8.5-10.5); Carbon Dioxide 23 mmol/L (22-29); Chloride 98 mmol/L (98-107); Creatinine Clr Calc Pharmacy 121.8564; Globulin 3.1 g/dL (1.3-4.6); Glucose 102 mg/dL (65-115); Osmolality Calculated 282 mOsm/kg (285-295); Potassium 3.5 mmol/L (3.5-5.1); Sodium 136 mmol/L (136-145); Total Protein 7.7 g/dL (6.6-8.7)
[2025-07-04 10:29] LABS: Acetaminophen < 5.0 ug/mL (10-30); Alcohol Level < 10 mg/dL (0-10); Salicylate < 0.3 mg/dL (3-10)
[2025-07-04 11:06] VITALS: BP 148/76; PULSE 78; O2SAT 99
--- NOTE | 2025-07-04 11:12 | PC.PHAR ---
Pt states his medications are not working real well and would like to try not taking anything for awhile or changing medications all together. Pt also states he has been taking Melatonin 10mg at night and lately, still can't fall asleep.
[2025-07-04 11:19] VITALS: BP 164/99; PULSE 73; RESP 16; TEMP 37.2; O2SAT 100
[2025-07-04 14:00] VITALS: BP 164/93; PULSE 62; RESP 16; TEMP 36.6; O2SAT 99
[2025-07-04] MEDS: neomycin-poly-bacitracin oint 28 gm 1 APPLIC TOPICAL (18:06)
[2025-07-04 21:16] VITALS: BP 130/72; PULSE 72; RESP 18; TEMP 36.7; O2SAT 100
[2025-07-04 21:20] LABS: PCP Screen Urine Negative (Negative)
[2025-07-05 06:00] VITALS: BP 148/74; PULSE 95; RESP 18; TEMP 36.8; O2SAT 100
--- NOTE | 2025-07-05 10:59 | PC.NURSE ---
CLEANED INDEX AND MIDDLE FINGER WITH NORMAL SALINE AREA APPEARED TO BE HEALING, NO PINKNESS NOTED. DRIED AREA WITH GUAZE BOTH SITES LEFT OPEN TO AIR.
--- NOTE | 2025-07-05 13:05 | W.PM.NPUH&PS ---
Providers/Chief Complaint Admitting Physician: Randolph Irby MD Chief Complaint: MHE HPI NPU History of Present Illness Benoit Black is a 34 year old male with a history of bipolar 1 disorder who presented to the emergency department with reports of mood dysregulation and reporting suicidal thoughts. Patient was admitted involuntarily to the neuropsychiatric unit for further evaluation and treatment. The patient had reported that he has not been taking Abilify for several months. He reports that he has been having periods of depression lasting weeks with other periods of time where he does appear to have racing thoughts and has difficulties with concentration. Patient had also endorsed a past history of mixed mood symptoms with depression concomitantly with manic symptoms as well. Patient reports no racing thoughts at this time. He does report feeling excessively tired and reports that he has been struggling with concentration. He had reported having problems with increased distraction at work. He had reported no current suicidal plan but stated that he needed to get help with his medications. He reports low energy and low motivation currently. He reports that he has been cutting down on his marijuana use over the past few years. Patient had reported decreased caffeine use as well. The patient reports that he has been hearing voices coming from another room and states that he has questions at times as to whether there is anyone there at all. The patient had reported no new stressors with his new job of the past 7 months. He reports no change in appetite. He reports having chronic struggles with managing his anxiety. Patient had previously endorsed having periods of time with excess euphoria or irritability lasting for several days while existing on limited amounts of sleep. He reports that he frequently cycles between depression and christiano over the course of a year. Inpatient psychiatric history: He reports his last inpatient hospitalization was here at the neuropsychiatric unit in December 2022. Outpatient psychiatric history: He reports no current history of seeing a therapist or psychiatrist but states that his problems with bipolar have been managed by his primary care physician through [facility] under Dr. Wilson. Previous medication trials include Abilify and Lexapro, Effexor XR. Substance abuse history: He reports using marijuana primarily for several years. He denies any alcohol use or other illicit drug use. He reports no history of substance abuse treatment. Medical history: None actively with past history of sleep apnea reported. Surgical history: None Allergies: No known drug allergies Medications: BuSpar 15 mg twice a day, Strattera 60 mg a day, Lamictal 25 mg daily. Legal history: None reported Family psychiatric history: Bipolar disorder in mother and father. Social history: Patient was born in [facility] raised by his biological parents. He had reported no learning problems growing up. He has 1 sister. He had previously been for 6 years and has a biological child who lives with the ex-. He currently lives with his girlfriend of several months and has 4 children in that home currently. He works currently in a local [employer] group here in [place]. He currently lives in [place]. He denied any prior history of sexual physical or emotional abuse. Excerpt from NPU Discharge Summary from 12/21/92 Discharge Diagnosis (1) Psychosis: Status: Acute (2) Bipolar disorder, unspecified: Status: Acute (3) Acute anxiety: Status: Acute Reason for Visit Reason for Visit: anxiety. Brief History: History of Present Illness Benoit Black is a 32 year old male who reports that he had presented himself to the emergency department after he had had a breakdown at work where he had apparently lost control of his emotions at [employer] and had proceeded to punch various items at work leading to the patient being fired from his job.? He had reported that he had lost control of his emotions and reports that he needed to be in the hospital for an evaluation.? The patient was admitted to the neuropsychiatric unit for further evaluation and treatment as he was admitted voluntarily.? He had reported that for the last several days he has had limited amounts of sleep.? He had reported that he had been extremely busy and extremely stressed about? various problems including his 's medical problems his work related issues and his continued goal oriented activities including apparently taking apart his motor vehicle to fix it.? He had provided a history of having increased work related problems for a few months and stated that he had been in need of help for his anxiety.? He had reported that he frequently feels like his thoughts are moving rapidly.? He was unable to describe having any increase or decrease in racing thoughts.? He had reported at times having decreased need for sleep and reports that he normally isolates himself and is introverted but he had lost it at work and decided to tell his work everything that was on his mind.? He had admitted to using a powerful caffeinated beverage over the last few? weeks to stay awake called bryan Grier.? 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 Upon viewing of this written information, the patient had written a long difficult note containing some difficult to follow events that appeared to be almost a stream of consciousness writing.? He denied any paranoia nor did he report having any ideas of reference but did report that he needed help.? He had reported that he had been compliant with taking his Effexor XR 300 mg as prescribed for several months and reported that he had been using routine marijuana to manage his anxiety.? He had reported a history of excessive spending recently as he had stated that he is currently in the process of getting a loan to purchase a new home. Psychiatric history: The patient had reported no prior inpatient hospitalization.? He had reported that he had been receiving medication through the [facility] under Dr. Santiago in [facility] and had been prescribed his medication there with 1 previous trial of an SSRI for treating anxiety unsuccessfully. Surgeries: None Medical history: Reports of sleep apnea per previous records Allergies no known drug allergies Drug and alcohol history: He has reported routine daily use of marijuana for several years stating that he is on Indica for anxiety.? He minimizes any alcohol use currently nor any other illicit drug use. Social history: He was born in [facility] and raised by his biological parents.? He had reported having graduated from high school in [place].? He has 1 sister who he has limited contact with.? He has reported that he has been for 4 years and has a child who is 5 years old who is in the home.? He reported no history of sexual physical or emotional abuse.? He had reported that his biological parents had both been diagnosed with bipolar disorder.? 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 Family psychiatric history: Bipolar disorder in mother and father Hospital Course Hospital Course Discharge Summary: During the hospitalization, patient had routine laboratory studies which were within normal limits except for few outliers. Additionally there was a general medical evaluation which was also within normal limits and revealed no new acute processes. At the time of discharge, lethality was denied and psychosis was resolving. Mood and anxiety were well managed. Patient endorsed a plan to avoid all drugs of abuse and follow-up with the aftercare recommendations of the treatment team. Patient was evaluated and deemed to be absent credible lethality, and had achieved the maximum benefit from an inpatient hospitalization, so was discharged. The patient had appeared psychotic and manic on the unit and Abilify was added and Effexor XR was reduced to 225mg on discharge with a plan for the patient to reduce Effexor XR slowly with concern that it was causing increased mood cycling. The patient was agreeable to this plan to continue on an outpatient basis. Meds NPU Home Medications ?Medication ?Instructions ?Recorded ?Confirmed ?Last Taken ?Type atomoxetine 60 mg capsule 60 mg PO DAILY 07/04/25 07/04/25 Unknown History buspirone 15 mg tablet 15 mg PO BID 07/04/25 07/04/25 Unknown History lamotrigine 25 mg tablet See Rx Instructions .Route .COMPLEX 07/04/25 07/04/25 Unknown History Allergies Allergy/AdvReac Type Severity Reaction Status Date / Time No Known Allergies Allergy Unverified 10/30/22 08:50 PFS NPU PFSH: Medical History (Updated 07/05/25 @ 13:30 by Randolph Irby MD) No significant past medical history Surgical History No significant past surgical history Mental Status Exam MSE Comments: Patient scapula dressed male who was pleasant and cooperative on interview. His gait appeared within normal limits. His hygiene was poor. There was no evidence of any abnormal involuntary motor movements appreciated. There was evidence of mild psychomotor retardation. His speech was somewhat slow and decreased in rate with normal volume. His mood was described as depressed. His affect was restricted in range and mood congruent. His thought process was linear, logical, and goal directed. His thought content revealed suicidal ideation with no active plan. He denied any homicidal ideation. He had acknowledged hearing voices but actively did not appear to be responding to internal stimuli. There was no clear evidence of delusional thinking. His attention span appeared variable. He was alert and oriented to person,place, time, and situation. His recent and remote memory are grossly intact. His insight is poor. Judgment is limited. His impulse control appeared poor. Vitals/I&O/Wt Last Vital Signs Temp 98.2 F 07/05/25 06:00 Pulse 95 07/05/25 06:00 Resp 18 07/05/25 06:00 BP 148/74 07/05/25 06:00 Pulse Ox 100 07/05/25 06:00 O2 Del Method Room Air 07/05/25 06:00 Weight last 48 hrs Weight 104.326 kg Data NPU 07/04/25 09:50 07/04/25 09:50 A&P Assessment and plan 1. Bipolar depression: 2. Suicidal ideation: 3. TAMARA (generalized anxiety disorder): Plan: 34-year-old male with genetic loading for bipolar 1 disorder who arrived here today with depression with a clear documented history of christiano currently on a very small dose of lamotrigine to target depression and no other mood stabilizer. He also appears to have been having some psychotic symptoms as well which merits further investigation. #1.? Engage patient in individual milieu and group therapy. #2?? Recommend sober living treatment at the highest level of care to which the patient is willing to commit #3??? Increase Lamotrigine to 50mg at night. Add mood stabilizer, Abilify 10mg daily. . Hold Strattera. Continue buspar 15mg bid.? #4?? TO-15 minute checks? #5?? Will attempt to gather collateral information PDMP PDMP Reviewed: Not Reviewed Involuntary Hold Information Hold Status: Legal Status: 96 Hour Hold Date/Time Hold Expires: 07/10/2025 @ 0956 Attestations NPU Medical Necessity Statement*: Inpatient hospitalization is medically necessary and deemed to ?be ?the clinically appropriate intervention ?at this time.? We will monitor/initiate medications and make changes as indicated.? The patient will be hospitalized for at least two midnights. The patient?s likely length of stay 5-7 days. Coding Level of Care Code Acute Code for Chg Fwd Diagnoses Bipolar depression F31.9 Suicidal ideation R45.851 TAMARA (generalized anxiety disorder) F41.1
[2025-07-05 14:00] VITALS: BP 160/97; PULSE 81; RESP 16; TEMP 37.7; O2SAT 100
[2025-07-05] MEDS: neomycin-poly-bacitracin oint 28 gm 1 APPLIC TOPICAL (17:23)
[2025-07-05 20:11] VITALS: BP 156/85; PULSE 68; RESP 18; TEMP 36.7; O2SAT 100
[2025-07-06 06:00] VITALS: BP 154/92; PULSE 96; RESP 18; TEMP 36.7; O2SAT 99
[2025-07-06] MEDS: neomycin-poly-bacitracin oint 28 gm 1 APPLIC TOPICAL ×2 (09:05→17:15)
--- NOTE | 2025-07-06 09:51 | NUR.SHIFT ---
Pt states that he slept pretty good last night. He is up to the nurses station taking his meds and requesting a shower. He reports significant anxiety 05/10. He reported a tight chest. V/s were checked and bp was elevated, but pt states this happens when he gets anxious. Had pt to go ahead with shower and gave PRN vistaril and report back to us if he didn't feel better. He denies depression. No reports of SI/HI or hallucinations. He cooperative with assessment. He did get NA for the cuts on his fingers. Those are looking good with no signs of infection.
[2025-07-06 14:00] VITALS: BP 135/89; PULSE 114; RESP 18; TEMP 37.4; O2SAT 99
--- NOTE | 2025-07-06 14:58 | P.NPUPN_ITS ---
Subjective NPU 2 Subjective: Patient presented today reporting he is doing all right. He is trying to make sure that this time when he leaves the hospital he takes his medications because he feels he was taking it but is unclear if that was actually true. Additionally he has a cannabis use and we discussed the impact that could have on his psychiatric presentation. He reports he is feeling that he is doing a little better with the Abilify and he is hopeful that he does not have to stay until Wednesday. We discussed the likelihood of discharge on Wednesday anxiety side effect of the medication. Mental Status Exam 2 MSE Comments: This is an obese white male in scrubs with poor grooming and limited eye contact. He was pleasant and cooperative on interview. His gait appeared within normal limits. His hygiene was poor. There was no evidence of any abnormal involuntary motor movements appreciated. There was evidence of mild psychomotor retardation. His speech was somewhat slow and decreased in rate with normal volume. His mood was described as depressed. His affect was restricted in range and mood congruent. His thought process was linear, logical, and goal directed. His thought content revealed suicidal ideation with no active plan. He denied any homicidal ideation. He had acknowledged hearing voices but actively did not appear to be responding to internal stimuli. There was no clear evidence of delusional thinking. His attention span appeared variable. He was alert and oriented to person,place, time, and situation. His recent and remote memory are grossly intact. His insight is poor. Judgment is limited. His impulse control appeared poor. Vitals/I&O/Wt Last Vital Signs Temp 98.1 F 07/06/25 06:00 Pulse 96 07/06/25 06:00 Resp 18 07/06/25 06:00 BP 154/92 07/06/25 06:00 Pulse Ox 99 07/06/25 06:00 O2 Del Method Room Air 07/06/25 06:00 Data NPU 07/04/25 09:50 07/04/25 09:50 A&P Assessment and plan 1. Bipolar depression: 2. Suicidal ideation: 3. TAMARA (generalized anxiety disorder): Plan: 34-year-old male with genetic loading for bipolar 1 disorder who arrived here today with depression with a clear documented history of christiano currently on a very small dose of lamotrigine to target depression and no other mood stabilizer. He also appears to have been having some psychotic symptoms as well which merits further investigation. #1.? Engage patient in individual milieu and group therapy. #2?? Recommend sober living treatment at the highest level of care to which the patient is willing to commit #3??? Increase Lamotrigine to 50mg at night. Add mood stabilizer, Abilify 10mg daily. . Hold Strattera. Continue buspar 15mg bid.? #4?? TO-15 minute checks? #5?? Will attempt to gather collateral information PDMP PDMP Reviewed: Not Reviewed Involuntary Hold Information 2 Hold Status: Legal Status: 96 Hour Hold Date/Time Hold Expires: 07/10/2025 @ 0956 Attestations NPU 2 Medical Necessity Statement*: Inpatient hospitalization is medically necessary and deemed to ?be ?the clinically appropriate intervention ?at this time.? We will monitor/initiate medications and make changes as indicated.? The patient?s likely length of stay 4-6 days. Coding Level of Care Code Acute Code for Chg Fwd Diagnoses Bipolar depression F31.9 Suicidal ideation R45.851 TAMARA (generalized anxiety disorder) F41.1
[2025-07-06 20:33] VITALS: BP 139/92; PULSE 121; RESP 18; TEMP 36.9; O2SAT 100
[2025-07-07 06:00] VITALS: BP 148/99; PULSE 77; RESP 18; TEMP 36.6; O2SAT 98
[2025-07-07] MEDS: neomycin-poly-bacitracin oint 28 gm 1 APPLIC TOPICAL (08:42)
[2025-07-07 14:00] VITALS: BP 133/84; PULSE 66; RESP 16; TEMP 37; O2SAT 99
--- NOTE | 2025-07-07 19:40 | P.NPUPN_ITS ---
Subjective NPU 2 Subjective: Patient presented today reporting he is continuing to do better. He continued to endorse improvement on the medications and a plan to continue the medications once he leaves. We continue to discuss the possible implications of his cannabis use. We continued to discuss likely discharge if Wednesday and he denied any side effects to his medications. e discussed the likelihood of discharge on Wednesday anxiety side effect of the medication. Mental Status Exam 2 MSE Comments: This is an obese white male in scrubs with poor grooming and limited eye contact. He was pleasant and cooperative on interview. His gait appeared within normal limits. His hygiene was poor. There was no evidence of any abnormal involuntary motor movements appreciated. There was evidence of mild psychomotor retardation. His speech was somewhat slow and decreased in rate with normal volume. His mood was described as depressed. His affect was restricted in range and mood congruent. His thought process was linear, logical, and goal directed. His thought content revealed suicidal ideation with no active plan. He denied any homicidal ideation. He had acknowledged hearing voices but actively did not appear to be responding to internal stimuli. There was no clear evidence of delusional thinking. His attention span appeared variable. He was alert and oriented to person,place, time, and situation. His recent and remote memory are grossly intact. His insight is poor. Judgment is limited. His impulse control appeared poor. Vitals/I&O/Wt Last Vital Signs Temp 98.6 F 07/07/25 14:00 Pulse 66 07/07/25 14:00 Resp 16 07/07/25 14:00 BP 133/84 07/07/25 14:00 Pulse Ox 99 07/07/25 14:00 O2 Del Method Room Air 07/07/25 14:00 Data NPU 07/04/25 09:50 07/04/25 09:50 A&P Assessment and plan 1. Bipolar depression: 2. Suicidal ideation: 3. TAMARA (generalized anxiety disorder): Plan: 34-year-old male with genetic loading for bipolar 1 disorder who arrived here today with depression with a clear documented history of christiano currently on a very small dose of lamotrigine to target depression and no other mood stabilizer. He also appears to have been having some psychotic symptoms as well which merits further investigation. #1.? Engage patient in individual milieu and group therapy. #2?? Recommend sober living treatment at the highest level of care to which the patient is willing to commit #3??? Increase Lamotrigine to 50mg at night. Add mood stabilizer, Abilify 10mg daily. . Hold Strattera. Continue buspar 15mg bid.? #4?? TO-15 minute checks? #5?? Will attempt to gather collateral information PDMP PDMP Reviewed: Not Reviewed Involuntary Hold Information 2 Hold Status: Legal Status: 96 Hour Hold Date/Time Hold Expires: 07/10/2025 @ 0956 Attestations NPU 2 Medical Necessity Statement*: Inpatient hospitalization is medically necessary and the clinically appropriate intervention at this time.? We will monitor/initiate medications and make changes as indicated.? The patient?s likely length of stay 3-5 days. Coding Level of Care Code Acute Code for Chg Fwd Diagnoses Bipolar depression F31.9 Suicidal ideation R45.851 TAMARA (generalized anxiety disorder) F41.1
[2025-07-07 20:15] VITALS: BP 146/102; PULSE 90; RESP 18; TEMP 36.8; O2SAT 100
[2025-07-08 06:00] VITALS: BP 139/102; PULSE 90; RESP 18; TEMP 36.8; O2SAT 99; BMI 31.6
--- NOTE | 2025-07-08 10:10 | NUR.SHIFT ---
Pt states that he slept good last night. He denies anxiety and depression. No reports of SI/HI or hallucinations. Denies pain. Pt is calm and cooperative on assessment. Once I am finished he covered back up and closed his eyes.
[2025-07-08 14:00] VITALS: BP 136/93; PULSE 94; RESP 16; TEMP 36.8; O2SAT 99
--- NOTE | 2025-07-08 15:27 | P.NPUPN_ITS ---
Subjective NPU 2 Subjective: Patient presented today reporting that things are going better. We discussed making sure that he has appropriate follow-up tomorrow with the social work team and that there was a likelihood for discharge in the next 48 hours. We discussed his medications and she reports he is doing fine with and he is developing a plan about how to move forward when he gets out of the hospital. He denied any side effects of his medication. Mental Status Exam 2 MSE Comments: This is an obese white male in scrubs with poor grooming and limited eye contact. He was pleasant and cooperative on interview. His gait appeared within normal limits. His hygiene was poor. There was no evidence of any abnormal involuntary motor movements appreciated. There was evidence of mild psychomotor retardation. His speech was more normal in rate with normal volume. His mood was described as getting better. His affect was congruent. His thought process was linear, logical, and goal directed. His thought content revealed suicidal ideation with no active plan. He denied any homicidal ideation. He had acknowledged hearing voices but actively did not appear to be responding to internal stimuli. There was no clear evidence of delusional thinking. His attention span appeared variable. He was alert and oriented to person,place, time, and situation. His recent and remote memory are grossly intact. His insight is poor. Judgment is limited. His impulse control appeared poor. Vitals/I&O/Wt Last Vital Signs Temp 98.3 F 07/08/25 14:00 Pulse 94 07/08/25 14:00 Resp 16 07/08/25 14:00 BP 136/93 07/08/25 14:00 Pulse Ox 99 07/08/25 14:00 O2 Del Method Room Air 07/08/25 14:00 Weight last 48 hrs Weight 94.404 kg Data NPU 07/04/25 09:50 07/04/25 09:50 A&P Assessment and plan 1. Bipolar depression: 2. Suicidal ideation: 3. TAMARA (generalized anxiety disorder): Plan: 34-year-old male with genetic loading for bipolar 1 disorder who arrived here today with depression with a clear documented history of christiano currently on a very small dose of lamotrigine to target depression and no other mood stabilizer. He also appears to have been having some psychotic symptoms as well which merits further investigation. #1.? Engage patient in individual milieu and group therapy. #2?? Recommend sober living treatment at the highest level of care to which the patient is willing to commit #3??? Increase Lamotrigine to 50mg at night. Add mood stabilizer, Abilify 10mg daily. . Hold Strattera. Continue buspar 15mg bid.?Started lisinopril 10 mg p.o. daily for his hypertension.?? #4?? TO-15 minute checks? #5?? Will attempt to gather collateral information PDMP PDMP Reviewed: Not Reviewed Involuntary Hold Information 2 Hold Status: Legal Status: 96 Hour Hold Date/Time Hold Expires: 07/10/2025 @ 0956 Attestations NPU 2 Medical Necessity Statement*: Inpatient hospitalization is medically necessary and the clinically appropriate intervention at this time.? We will monitor/initiate medications and make changes as indicated.? The patient?s likely length of stay 1-3 days. Coding Level of Care Code Acute Code for Chg Fwd Diagnoses Bipolar depression F31.9 Suicidal ideation R45.851 TAMARA (generalized anxiety disorder) F41.1
[2025-07-08 19:10] VITALS: BP 136/89; PULSE 97; RESP 19; TEMP 37.1; O2SAT 97
[2025-07-09 06:00] VITALS: BP 107/71; PULSE 83; RESP 16; TEMP 36.6; O2SAT 98
[2025-07-09] MEDS: neomycin-poly-bacitracin oint 28 gm 1 APPLIC TOPICAL (08:17)
--- NOTE | 2025-07-09 12:53 | W.PM.NPUDCS ---
Diagnoses at Discharge Discharge Diagnosis 1. Bipolar depression: 2. Suicidal ideation: 3. TAMARA (generalized anxiety disorder): Reason for Visit Reason for Visit: MHE Brief History: History of Present Illness Benoit Black is a 34 year old male with a history of bipolar 1 disorder who presented to the emergency department with reports of mood dysregulation and reporting suicidal thoughts. Patient was admitted involuntarily to the neuropsychiatric unit for further evaluation and treatment. The patient had reported that he has not been taking Abilify for several months. He reports that he has been having periods of depression lasting weeks with other periods of time where he does appear to have racing thoughts and has difficulties with concentration. Patient had also endorsed a past history of mixed mood symptoms with depression concomitantly with manic symptoms as well. Patient reports no racing thoughts at this time. He does report feeling excessively tired and reports that he has been struggling with concentration. He had reported having problems with increased distraction at work. He had reported no current suicidal plan but stated that he needed to get help with his medications. He reports low energy and low motivation currently. He reports that he has been cutting down on his marijuana use over the past few years. Patient had reported decreased caffeine use as well. The patient reports that he has been hearing voices coming from another room and states that he has questions at times as to whether there is anyone there at all. The patient had reported no new stressors with his new job of the past 7 months. He reports no change in appetite. He reports having chronic struggles with managing his anxiety. Patient had previously endorsed having periods of time with excess euphoria or irritability lasting for several days while existing on limited amounts of sleep. He reports that he frequently cycles between depression and christiano over the course of a year. Inpatient psychiatric history: He reports his last inpatient hospitalization was here at the neuropsychiatric unit in December 2022. Outpatient psychiatric history: He reports no current history of seeing a therapist or psychiatrist but states that his problems with bipolar have been managed by his primary care physician through [facility] under Dr. Wilson. Previous medication trials include Abilify and Lexapro, Effexor XR. Substance abuse history: He reports using marijuana primarily for several years. He denies any alcohol use or other illicit drug use. He reports no history of substance abuse treatment. Medical history: None actively with past history of sleep apnea reported. Surgical history: None Allergies: No known drug allergies Medications: BuSpar 15 mg twice a day, Strattera 60 mg a day, Lamictal 25 mg daily. Legal history: None reported Family psychiatric history: Bipolar disorder in mother and father. Social history: Patient was born in [facility] raised by his biological parents. He had reported no learning problems growing up. He has 1 sister. He had previously been for 6 years and has a biological child who lives with the ex-. He currently lives with his girlfriend of several months and has 4 children in that home currently. He works currently in a [employer] here in [place]. He currently lives in [place]. He denied any prior history of sexual physical or emotional abuse. Excerpt from NPU Discharge Summary from 12/21/92 Discharge Diagnosis (1) Psychosis: Status: Acute (2) Bipolar disorder, unspecified: Status: Acute (3) Acute anxiety: Status: Acute Reason for Visit Reason for Visit: anxiety. Brief History: History of Present Illness Benoit Black is a 32 year old male who reports that he had presented himself to the emergency department after he had had a breakdown at work where he had apparently lost control of his emotions at [facility] and had proceeded to punch various items at work leading to the patient being fired from his job.? He had reported that he had lost control of his emotions and reports that he needed to be in the hospital for an evaluation.? The patient was admitted to the neuropsychiatric unit for further evaluation and treatment as he was admitted voluntarily.? He had reported that for the last several days he has had limited amounts of sleep.? He had reported that he had been extremely busy and extremely stressed about? various problems including his 's medical problems his work related issues and his continued goal oriented activities including apparently taking apart his motor vehicle to fix it.? He had provided a history of having increased work related problems for a few months and stated that he had been in need of help for his anxiety.? He had reported that he frequently feels like his thoughts are moving rapidly.? He was unable to describe having any increase or decrease in racing thoughts.? He had reported at times having decreased need for sleep and reports that he normally isolates himself and is introverted but he had lost it at work and decided to tell his work everything that was on his mind.? He had admitted to using a powerful caffeinated beverage over the last few? weeks to stay awake called red Marvel.? 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 Upon viewing of this written information, the patient had written a long difficult note containing some difficult to follow events that appeared to be almost a stream of consciousness writing.? He denied any paranoia nor did he report having any ideas of reference but did report that he needed help.? He had reported that he had been compliant with taking his Effexor XR 300 mg as prescribed for several months and reported that he had been using routine marijuana to manage his anxiety.? He had reported a history of excessive spending recently as he had stated that he is currently in the process of getting a loan to purchase a new home. Psychiatric history: The patient had reported no prior inpatient hospitalization.? He had reported that he had been receiving medication through the [facility] under Dr. Santiago in [facility] and had been prescribed his medication there with 1 previous trial of an SSRI for treating anxiety unsuccessfully. Surgeries: None Medical history: Reports of sleep apnea per previous records Allergies no known drug allergies Drug and alcohol history: He has reported routine daily use of marijuana for several years stating that he is on Indica for anxiety.? He minimizes any alcohol use currently nor any other illicit drug use. Social history: He was born in [facility] and raised by his biological parents.? He had reported having graduated from high school in [place].? He has 1 sister who he has limited contact with.? He has reported that he has been for 4 years and has a child who is 5 years old who is in the home.? He reported no history of sexual physical or emotional abuse.? He had reported that his biological parents had both been diagnosed with bipolar disorder.? 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 Family psychiatric history: Bipolar disorder in mother and father Hospital Course Hospital Course Discharge Summary: During the hospitalization, patient had routine laboratory studies which were within normal limits except for few outliers. Additionally there was a general medical evaluation which was also within normal limits and revealed no new acute processes. At the time of discharge, lethality was denied and psychosis was resolving. Mood and anxiety were well managed. Patient endorsed a plan to avoid all drugs of abuse and follow-up with the aftercare recommendations of the treatment team. Patient was evaluated and deemed to be absent credible lethality, and had achieved the maximum benefit from an inpatient hospitalization, so was discharged. The patient had appeared psychotic and manic on the unit and Abilify was added and Effexor XR was reduced to 225mg on discharge with a plan for the patient to reduce Effexor XR slowly with concern that it was causing increased mood cycling. The patient was agreeable to this plan to continue on an outpatient basis. Involuntary Hold Information Hold Status: Legal Status: 96 Hour Hold Date/Time Hold Expires: 07/10/2025 @ 0956 Mental Status Exam MSE Comments: This is an obese white male in scrubs with poor grooming and limited eye contact. He was pleasant and cooperative on interview. His gait appeared within normal limits. His hygiene was poor. There was no evidence of any abnormal involuntary motor movements appreciated. There was evidence of mild psychomotor retardation. His speech was more normal in rate with normal volume. His mood was described as getting better. His affect was congruent. His thought process was linear, logical, and goal directed. His thought content revealed suicidal ideation with no active plan. He denied any homicidal ideation. He had acknowledged hearing voices but actively did not appear to be responding to internal stimuli. There was no clear evidence of delusional thinking. His attention span appeared variable. He was alert and oriented to person,place, time, and situation. His recent and remote memory are grossly intact. His insight is poor. Judgment is limited. His impulse control appeared poor. Discharge Data Studies Completed and Pending: Laboratory Results WBC 10.75 10^3/uL (3. 29-11.43) 07/04/25 09:50 RBC 4.86 10^6/uL (3.8 5-5.65) 07/04/25 09:50 Hgb 14.30 g/dL (11.27 -16.99) 07/04/25 09:50 Hct 42.4 % (37-53) 07/04/25 09:50 MCV 87.2 fl (82-101) 07/04/25 09:50 MCH 29.4 pg (27-33) 07/04/25 09:50 MCHC 33.7 g/dL (30-55) 07/04/25 09:50 RDW 12.5 % (12.1-15.1 ) 07/04/25 09:50 Plt Count 339 10^3/cmm (157 -399) 07/04/25 09:50 MPV 9.5 fL (7.4-10.4) 07/04/25 09:50 Neut % (Auto) 75.7 % 07/04/25 09:50 Lymph % (Auto) 16.5 % 07/04/25 09:50 [place] % (Auto) 6.6 % 07/04/25 09:50 Eos % (Auto) 0.2 % 07/04/25 09:50 Baso % (Auto) 0.7 % 07/04/25 09:50 Neut # (Auto) 8.14 10^3/uL (1.8 -7.7) H 07/04/25 09:50 Lymph # (Auto) 1.8 10^3/uL (0.8- 4.8) 07/04/25 09:50 [place] # (Auto) 0.7 10^3/uL (0.2- 0.9) 07/04/25 09:50 Eos # (Auto) 0.0 10^3/uL (0.0- 0.8) 07/04/25 09:50 Baso # (Auto) 0.1 10^3/uL (0.0- 0.1) 07/04/25 09:50 Nucleated RBC % (a uto) 0 % 07/04/25 09:50 Nucleated RBCs # 0.0 /100WBC 07/04/25 09:50 Sodium 136 mmol/L (136-1 45) 07/04/25 09:50 Potassium 3.5 mmol/L (3.5-5 .1) 07/04/25 09:50 Chloride 98 mmol/L (98-107 ) 07/04/25 09:50 Carbon Dioxide 23 mmol/L (22-29) 07/04/25 09:50 Anion Gap 18.5 (5-19) 07/04/25 09:50 BUN 12 mg/dL (6-20) 07/04/25 09:50 Creatinine 1.0 mg/dL (0.7-1. 2) 07/04/25 09:50 GFR Calculation 85.5 mL/min (90-1 30) L 07/04/25 09:50 Glucose 102 mg/dL (65-115 ) 07/04/25 09:50 Calculated Osmolal ity 282 mOsm/kg (285- 295) L 07/04/25 09:50 Calcium 9.7 mg/dL (8.5-10 .5) 07/04/25 09:50 Total Bilirubin 1.1 mg/dL (0.15-1 .2) 07/04/25 09:50 AST 33 U/L (0-40) 07/04/25 09:50 ALT 32 U/L (0-41) 07/04/25 09:50 Alkaline Phosphata se 77 U/L (40-130) 07/04/25 09:50 Total Protein 7.7 g/dL (6.6-8.7 ) 07/04/25 09:50 Albumin 4.6 g/dL (3.5-5.2 ) 07/04/25 09:50 Globulin 3.1 g/dL (1.3-4.6 ) 07/04/25 09:50 Salicylates < 0.3 mg/dL (3-10 ) L 07/04/25 09:50 Urine Opiates Scre en Negative ng/mL (N egative) 07/04/25 19:00 Acetaminophen < 5.0 ug/mL (10-3 0) L 07/04/25 09:50 Ur Barbiturates Sc reen Negative ng/mL (N egative) 07/04/25 19:00 Ur Phencyclidine S crn Negative ng/mL (N egative) 07/04/25 19:00 Ur Amphetamines Sc reen Negative ng/mL (N egative) 07/04/25 19:00 U Benzodiazepines Scrn Negative ng/mL (N egative) 07/04/25 19:00 Urine Cocaine Scre en Negative ng/mL (N egative) 07/04/25 19:00 U Marijuana (THC) Screen Positive ng/mL (N egative) H 07/04/25 19:00 Ethyl Alcohol < 10 mg/dL (0-10) 07/04/25 09:50 Vitals: Last Vital Signs Temp 97.8 F 07/09/25 06:00 Pulse 83 07/09/25 06:00 Resp 16 07/09/25 06:00 BP 107/71 07/09/25 06:00 Pulse Ox 98 07/09/25 06:00 O2 Del Method Room Air 07/09/25 06:00 Discharge Plan Discharge Patient Disposition: Home Condition: Stable Prescriptions: New trazodone 50 mg Tablet 50 mg PO BEDTIME PRN (Reason: Sleep) 30 Days Qty: 30 1RF lisinopril 10 mg Tablet 10 mg PO DAILY 30 Days Qty: 30 1RF aripiprazole 10 mg Tablet 10 mg PO DAILY 30 Days Qty: 30 1RF Continued lamotrigine 25 mg tablet See Rx Instructions .ROUTE .COMPLEX 30 Days Qty: 60 1RF Rx Instructions: TAKE 1 TABLET BY MOUTH ONCE DAILY FOR 30 DAYS THEN 2 ONCE DAILY. buspirone 15 mg tablet 15 mg PO BID 30 Days Qty: 60 1RF Discontinued atomoxetine 60 mg capsule 60 mg PO DAILY Discharge Order = DC NOW: Discharge Order (Routine); Ordered 07/09/25 Ordered By: Benny Madera Discharge Diet: Regular Discharge Activity: Resume usual activity Patient Instructions: Opioid Safety, Patient Portal & [facility] Instructions Discharge Attestations NPU Time Spent in Discharge Care*: less than 30 min Specific Discharge Activities: Specific discharge activities: educating patient, discussing with complex case manager/social workers/dc planners, documenting/other paperwork and evaluating patient/reviewing data Coding Level of Care Code Acute Code for Chg Fwd Diagnoses Bipolar depression F31.9 Suicidal ideation R45.851 TAMARA (generalized anxiety disorder) F41.1
[2025-07-09 14:11] VITALS: BP 107/71; PULSE 83; RESP 16; TEMP 36.6; O2SAT 98
== END 2025-07-09 14:24 | disposition home or self-care (01) | DRG 885 ==
LOC: ER 09:58 → NP 10:14
PROVIDERS: Admitting Provider Psychiatry & Neurology Psychiatry; Emergency Provider Emergency Medicine; Visit Provider Psychiatry & Neurology Psychiatry
DX: F31.5 Bipolar disorder, current episode depressed, severe, with psychotic features (principal); R45.851 Suicidal ideations; F41.1 Generalized anxiety disorder; F12.90 Cannabis use, unspecified, uncomplicated; Z81.8 Family history of other mental and behavioral disorders; E66.9 Obesity, unspecified; Z68.31 Body mass index [BMI] 31.0-31.9, adult; T43.596A Underdosing of other antipsychotics and neuroleptics, initial encounter; Z91.128 Patient's intentional underdosing of medication regimen for other reason
CPT/HCPCS: 36415; 80053; 80306; 80307; 85025; 97150; 97165; 99285; J9999

== ENCOUNTER → 2025-10-02 16:50 | Outpatient (BNVA) | payer BC, OTHER, SELFPAY | PROVIDERS: Visit Provider Emergency Medicine | DX: J02.9 Acute pharyngitis, unspecified (principal) | CPT/HCPCS: 87880 ==